=== PATIENT | male | born 1950 | race Caucasian/White ===

== ENCOUNTER 2025-02-08 11:05 | Outpatient (REF) | payer MEDICARE, BC, SELFPAY ==
[2025-02-08 11:46] LABS: Abs Immature Grans 0.04 10^3/uL (0.0-0.06); HCT 50.2 % (40.0-50.0); HGB 16.2 g/dL (13.5-17.5); Immature Grans % 0.3 %; MCH 28.0 pg (27.0-33.0); MCHC 32.3 % (32.0-36.0); MCV 87 fL (80-95); MPV 8.7 fL (8.0-11.0); Platelet Count 281 10^3/uL (130-400); RBC 5.78 10^6/uL (4.36-5.78); RDW 14.5 % (11.8-14.1); RDW-SD 45.9 fL; WBC 12.29 10^3/uL (4.4-10.8)
[2025-02-08 11:50] LABS: ESR 7 mm/hr (0-20)
[2025-02-08 12:15] LABS: ALT 30 U/L (16-63); AST 28 U/L (15-37); Albumin 3.9 g/dL (3.4-5.0); Alkaline Phosphatase 101 U/L (46-116); Anion Gap 9.7 mmol/L (3-11); BUN 18 mg/dL (7-18); Bilirubin, Total 0.6 mg/dL (0.2-1.0); C-Reactive Protein 0.94 mg/dL (<or=0.5); CO2 30.3 mmol/L (21.0-32.0); Calcium 8.7 mg/dL (8.5-10.1); Chloride 103 mmol/L (98-107); Creatine Kinase 86 U/L (39-308); Estimated GFR 64.25 (mL/min/1.73m2); Glucose 84 mg/dL (74-106); Potassium 4.5 mmol/L (3.5-5.1); Sodium 143 mmol/L (136-145); Total Protein 7.2 g/dL (6.4-8.2)
[2025-02-09 11:46] LABS: RNP Ab, IgG <6.0 CU (<20.0); Ro60 Ab, IgG <7.0 CU (<20.0); SS-A/Ro, IgG <2.3 CU (<20.0); SS-B (La) Ab, IgG <3.3 CU (<20.0)
[2025-02-10 14:23] LABS: Scl 70 Antibodies, IgG <0.2 U; Sm (Smith) Ab, IgG <0.2 U
[2025-02-23 18:12] LABS: EJ Ab Negative (Negative); HMG-CoA Reductase Ab <20.0 CU (<20.0); MDA5 Ab Negative (Negative); Mi2 Ab Negative (Negative); NXP2 Ab Negative (Negative); OJ Ab Negative (Negative); PL12 Ab Negative (Negative); PL7 Ab Negative (Negative); SAE1 Ab Negative (Negative); SRP IFA Screen Negative (Negative); TIF 1G Ab Negative (Negative)
== END 2025-02-08 11:06 | disposition home or self-care (01) ==
LOC: LBN 11:05
PROVIDERS: PCP Family Medicine; Visit Provider Internal Medicine Pulmonary Disease
DX: R06.00 Dyspnea, unspecified (principal); J84.9 Interstitial pulmonary disease, unspecified
CPT/HCPCS: 80053; 82397; 82550; 85652; 86200; 86235; 86255; 85025; 86038; 86140; 86225

== ENCOUNTER 2025-02-09 13:14 | Emergency (ER) | payer MEDICARE, BC, SELFPAY ==
[2025-02-09] VITALS (40 sets, daily range): BP systolic 120–139; BP diastolic 61–83; PULSE 51–79; RESP 9–31; TEMP 36.5; O2SAT 88–99
--- NOTE | 2025-02-09 13:15 | RT.EKG_ITS ---
APPROVED REPORT Exam: Resting ECG Reason for Exam: Bilateral shoulder and neck pain Patient Location: E HR:68 bpm ECG Measurements Heart Rate 68 AXIS IL 192 P 40 QRSd 83 QRS 29 QT 408 T 28 QTc 436 Conclusion Sinus rhythm...normal P axis, V-rate 60- 99 Ventricular premature complex...V complex w/ short R-R interval Probable left atrial enlargement...P >50mS, <-0.10mV V1 Repol abnrm suggests ischemia, diffuse leads...ST-T neg, ant/lat/inf No Occlusion OK. Marked T wave inversions with associated ST segment depressions V2 through V5.
--- NOTE | 2025-02-09 13:37 | W.EDPROG ---
Date of service: 02/09/25 Time of Service: 14:18 Medical Decision Making This patient arrived to my shift. He is a. Coronary artery disease status post stenting. He began having chest pain yesterday. Resolved now. He had an abnormal EKG concerning for anterior ischemia. Repeat slight improvement anterior T wave versions. Given no horizontal ST segment depression and upright T waves I did not complete a posterior ECG. Patient making troponin. Cardiology reviewed case. Please see advanced practice provider notes concerning ultimate disposition. Patient remained hemodynamically stable in the emergency department on my shift. Discharge Plan Discharge Details Chief Complaint: Chest Pain Primary Care Provider: Vlad Squires ED Provider: Rasheed Gonzalez Home Meds and New Rx's Prescriptions: No Action Trelegy Ellipta 100-62.5-25 mcg blister with device 1 inh inhalation DAILY Qty: 60 6RF metoprolol tartrate 50 mg tablet 100 mg PO DAILY atorvastatin 40 mg tablet 40 mg PO DAILY Eliquis 5 mg tablet 5 mg PO BID escitalopram oxalate 10 mg tablet 10 mg PO DAILY furosemide 20 mg tablet 20 mg PO DAILY nitroglycerin 0.4 mg tablet, sublingual 0.4 mg sublingual ONCE Rx Instructions: as a single dose; administer 5-10 minutes before situation known to precipitate angina attack pantoprazole 40 mg tablet,delayed release (DR/EC) 40 mg PO DAILY prednisone 20 mg tablet 5 mg PO DAILY POCUS Exam (ED) Limited Cardiac Exam DATE OF EXAM: 02/09/25 TIME OF EXAM: 14:19 PROVIDER THAT PERFORMED THE STUDY: Marv Campa IS THIS A REPEAT EXAM DURING THIS ENCOUNTER: no REASON FOR EXAM: Chest pain VISUALIZED STRUCTURES: Four Chambers, Left ventricle and LVOT VIEW OBTAINED: Apical 4-Chamber, Parasternal long-axis and Subxiphoid PERTINENT FINDINGS/IMPRESSION: No pericardial effusion and No RV dilation DIFFERENTIAL DIAGNOSES: Aortic outflow track less than 4 cm, good squeeze, RV less than LV, no significant pericardial effusion. Bilateral B-lines. No obvious wall motion abnormality. Exam complete
--- NOTE | 2025-02-09 13:45 | RT.EKG_ITS ---
APPROVED REPORT Exam: Resting ECG Reason for Exam: Chest Pain Patient Location: E HR:58 bpm ECG Measurements Heart Rate 58 AXIS SD 202 P 16 QRSd 84 QRS 28 QT 439 T 35 QTc 430 Conclusion Sinus bradycardia...rate< 60 Repol abnrm suggests ischemia, anterior leads...ST dep, T neg, V2-V4 No Occlusion IN
[2025-02-09 13:53] LABS: Abs Immature Grans 0.03 10^3/uL (0.0-0.06); HCT 50.9 % (40.0-50.0); HGB 16.4 g/dL (13.5-17.5); Immature Grans % 0.3 %; MCH 27.8 pg (27.0-33.0); MCHC 32.2 % (32.0-36.0); MCV 86 fL (80-95); MPV 8.3 fL (8.0-11.0); Platelet Count 275 10^3/uL (130-400); RBC 5.90 10^6/uL (4.36-5.78); RDW 14.4 % (11.8-14.1); RDW-SD 45.9 fL; WBC 10.49 10^3/uL (4.4-10.8)
[2025-02-09 14:05] LABS: INR 1.1 (0.9-1.1); PTT Activated 27.8 sec (20.6-30.2); Prothrombin Time 11.0 sec (9.1-11.1)
[2025-02-09 14:14] LABS: ALT 26 U/L (16-63); AST 19 U/L (15-37); Albumin 4.0 g/dL (3.4-5.0); Alkaline Phosphatase 106 U/L (46-116); Anion Gap 9.4 mmol/L (3-11); BUN 18 mg/dL (7-18); Bilirubin, Total 0.5 mg/dL (0.2-1.0); CO2 30.6 mmol/L (21.0-32.0); Calcium 9.0 mg/dL (8.5-10.1); Chloride 103 mmol/L (98-107); Glucose 113 mg/dL (74-106); Lipase 31 U/L (<78); Magnesium 2.0 mg/dL (1.8-2.4); Potassium 4.1 mmol/L (3.5-5.1); Sodium 143 mmol/L (136-145); Total Protein 8.0 g/dL (6.4-8.2)
[2025-02-09 14:15] LABS: Troponin I 94 ng/L (<or=76)
--- NOTE | 2025-02-09 14:15 | DI.RAD_ITS ---
Exam(s) XR PORTABLE CHEST AP EXAM: XR PORTABLE CHEST AP CLINICAL HISTORY: chest pain TECHNIQUE: 2D digital imaging was performed of the chest. One image was obtained. An AP view was obtained. COMPARISON: CT CT CTA CHEST W AND/OR WO CONTRAST from 11/11/[address] CHEST/ABD/PELVIS W/CONTRAST from 07/30/2024 FINDINGS: MEDIASTINUM: Normal. HEART: Normal. PULMONARY VASCULATURE: Normal. LUNGS: Compared to the CT scan of the chest, there again seen interstitial findings in the lungs consistent with pulmonary fibrosis. There are no focal consolidating infiltrates present. PLEURAL SPACE: No pleural effusion or pneumothorax. BONE:Within normal limits for the patient's age. OTHER FINDINGS:Normal. IMPRESSION: 1. There are no focal consolidating infiltrates. 2. Pulmonary fibrosis. DATA REPOSITORY: RADIATION DOSE DELIVERED:
[2025-02-09 15:17] LABS: Troponin I 86 ng/L (<or=76)
--- NOTE | 2025-02-09 15:20 | W.ED.GENAD ---
Discharge Plan Discharge Details Chief Complaint: Chest Pain Primary Care Provider: Vlad Squires ED Provider: Nichole Cantrell Home Meds and New Rx's Prescriptions: No Action Olive Hood 100-62.5-25 mcg blister with device 1 inh inhalation DAILY Qty: 60 6RF metoprolol tartrate 50 mg tablet 100 mg PO DAILY atorvastatin 40 mg tablet 40 mg PO DAILY Eliquis 5 mg tablet 5 mg PO BID escitalopram oxalate 10 mg tablet 10 mg PO DAILY furosemide 20 mg tablet 20 mg PO DAILY nitroglycerin 0.4 mg tablet, sublingual 0.4 mg sublingual ONCE Rx Instructions: as a single dose; administer 5-10 minutes before situation known to precipitate angina attack pantoprazole 40 mg tablet,delayed release (DR/EC) 40 mg PO DAILY prednisone 20 mg tablet 5 mg PO DAILY HPI General Date/Time Provider Initiated Documentation: 02/09/25 13:18. HPI Narrative: This 74-year-old male with history of supraventricular tachycardia, coronary artery disease with multiple stents, hyperlipidemia COPD, oxygen dependence type 2 diabetes presents from respiratory with report of pain in posterior thorax 1 episode of vomiting after walking into the pulmonary clinic today for pulmonary function test. Per pulmonary he was vomiting in the bathroom complaining of some posterior thorax pain and shortness of breath. He did have his baseline oxygen cannula in place. Currently denies any chest pain or thorax pain. He is status post RCA stent placement at [facility] [place] July of this year and has been taking his Eliquis as prescribed. He states he has a known LAD occlusion additionally. He states at this moment his pain is completely resolved. He denies any calf pain or swelling or history of pulmonary embolism. Denies tobacco use or alcohol use. Related Data Home Medications Medication Instructions Recorded Confirmed apixaban 5 mg tablet (Eliquis) 5 mg PO BID 05/14/24 02/09/25 atorvastatin 40 mg tablet 40 mg PO DAILY 05/14/24 02/09/25 escitalopram oxalate 10 mg tablet 10 mg PO DAILY 05/14/24 02/09/25 furosemide 20 mg tablet 20 mg PO DAILY 05/14/24 02/09/25 nitroglycerin 0.4 mg sublingual 0.4 mg sublingual ONCE 05/14/24 02/09/25 tablet metoprolol tartrate 50 mg tablet 100 mg PO DAILY 06/15/24 02/09/25 pantoprazole 40 mg tablet,delayed 40 mg PO DAILY 12/27/24 02/09/25 release prednisone 20 mg tablet 5 mg PO DAILY 12/27/24 02/09/25 fluticasone fur. 100 mcg-umeclid 1 inh inhalation DAILY #60 ea 02/08/25 02/09/25 62.5 mcg-vilant 25 mcg inhalat.powder (Trelegy Ellipta) Previous Rx's Medication Instructions Recorded fluticasone fur. 100 mcg-umeclid 1 inh inhalation DAILY #60 ea 02/08/25 62.5 mcg-vilant 25 mcg inhalat.powder (Trelegy Ellipta) Allergies Allergy/AdvReac Type Severity Reaction Status Date / Time Sulfa (Sulfonamide Allergy Unknown Verified 02/09/25 13:19 Antibiotics) sulfamethoxazole (From Allergy Skin Rash Verified 02/09/25 13:19 Sulfamethoxazole-Trimethoprim) tree and shrub pollen Allergy Unknown Verified 02/09/25 13:19 trimethoprim (From Allergy Skin Rash Verified 02/09/25 13:19 Sulfamethoxazole-Trimethoprim) General Stated Complaint: GenMedical CLEM: 3 Exam Narrative Exam Narrative: Alert and oriented 74-year-old male chronically ill in appearance of oxygen cannula in place, no respiratory distress diminished lung sounds distal pulses intact all 4 extremities no peripheral edema no calf swelling or tenderness no abdominal tenderness no abdominal bruit or pulsatile mass Course Vital Signs Vital signs: Vital Signs Temperature 36.5 C 02/09/25 13:16 Pulse 72 02/09/25 13:16 Respiratory Rate 18 02/09/25 13:16 Blood Pressure 122/70 02/09/25 13:16 Pulse Oximetry 88 L 02/09/25 13:16 Temperature 36.5 C 02/09/25 13:16 Pulse 54 L 02/09/25 14:50 Pulse 55 L 02/09/25 14:50 Respiratory Rate 21 02/09/25 14:50 Respiratory Effort Normal, Non-Labored 02/09/25 14:07 Respiratory Depth Normal 02/09/25 14:07 Respiratory Pattern Normal 02/09/25 14:07 Blood Pressure 133/61 02/09/25 14:46 Blood Pressure Mean 87 02/09/25 14:46 Pulse Oximetry 95 02/09/25 14:50 Oxygen Delivery Method Nasal Cannula 02/09/25 13:16 Oxygen Flow Rate 3 02/09/25 13:16 Pain Level 0 02/09/25 13:16 Lab/Test Results Lab/Test Results: Laboratory Tests Range/Units 02/09/25 02/09/25 13:35 14:35 WBC (4.4-10.8) 10^3/uL 10.49 RBC (4.36-5.78) 10^6/uL 5.90 H Hgb (13.5-17.5) g/dL 16.4 Hct (40.0-50.0) % 50.9 H MCV (80-95) fL 86 MCH (27.0-33.0) pg 27.8 MCHC (32.0-36.0) % 32.2 RDW (11.8-14.1) % 14.4 H Plt Count (130-400) 10^3/uL 275 MPV (8.0-11.0) fL 8.3 Immature Gran % % 0.3 Neutrophils % % 71.5 Lymphocytes % % 17.3 Monocytes % % 8.0 Eosinophils % % 2.5 Basophils % % 0.4 Nucleated RBC % (0.0-0.3) % 0.0 Absolute Neutrophils (1.2-6.7) 10^3/uL 7.50 H Absolute Lymphocytes (1.2-3.4) 10^3/uL 1.82 Absolute Monocytes (0.1-0.8) 10^3/uL 0.84 H Absolute Eosinophils (0.0-0.7) 10^3/uL 0.26 Absolute Basophils (0.0-0.2) 10^3/uL 0.04 PT (9.1-11.1) sec 11.0 INR (0.9-1.1) 1.1 APTT (20.6-30.2) sec 27.8 Sodium (136-145) mmol/L 143 Potassium (3.5-5.1) mmol/L 4.1 Chloride (98-107) mmol/L 103 Carbon Dioxide (21.0-32.0) mmol/L 30.6 Anion Gap (3-11) mmol/L 9.4 BUN (7-18) mg/dL 18 Creatinine (0.70-1.30) mg/dL 1.4 H Est GFR (CKD-EPI 2020) (mL/min/1.73m2) 53.40 Glucose (74-106) mg/dL 113 H Calcium (8.5-10.1) mg/dL 9.0 Magnesium (1.8-2.4) mg/dL 2.0 Total Bilirubin (0.2-1.0) mg/dL 0.5 AST (15-37) U/L 19 ALT (16-63) U/L 26 Alkaline Phosphatase (46-116) U/L 106 Troponin I (<or=76) ng/L 94 H* 86 H* NT-Pro-B Natriuret Pep (<300) pg/mL 1194 H Total Protein (6.4-8.2) g/dL 8.0 Albumin (3.4-5.0) g/dL 4.0 Lipase (<78) U/L 31 Medical Decision Making Results: EKG concerning for posterior ischemia without obvious ST elevation or injury, troponin elevated at 94 CBC CMP within normal limits mild elevation in BNP at 1194 Assessment and plan: Patient currently chest pain-free and he does not endorse chest pain since last evening however respiratory therapist who brought patient down states he was complaining of some posterior thorax pain just prior to presentation in the emergency department patient does confirm that this is the case. He is chest pain free is not vomiting he is fully alert and oriented, his EKG is concerning for posterior ischemia and quite changed from his EKG performed at [facility] in August 2024 which is my last comparison. Patient did take his Eliquis this morning so I will hold on aspirin or heparin until I speak with cardiology at [facility]. Initial troponin is 94, repeat troponin of 86. Repeat EKG does not show acute change actually perhaps some mild improvement in V5 and V6. Blood pressure stable at 130/66 will hold on any additional medications at this time. Pending cardiology return call of note cardiology was called at approximately [phone] pending return call at this time patient is chest pain-free. I spoke with Rosa, cardiology nurse practitioner and she is going to speak with patient's dumpling machine operator regarding plan. Sounds like [facility] is at capacity and patient had an appointment with a stress test 3 weeks ago. Recommends adding 81 mg aspirin to Eliquis and holding heparin at this time. Pending return call at 1555. PFSH All Active Problems (Updated 11/04/25 @ 09:27 by Vance Claors MD) Chronic obstructive lung disease (Chronic) Interstitial lung disease (Acute) Paroxysmal A-fib (Acute) Iron deficiency anemia (Acute) Edema (Acute) CTS (carpal tunnel syndrome) (Acute) Sensorineural hearing loss (SNHL) of both ears (Acute) Nasal congestion (Acute) Medical History (Updated 02/08/25 @ 09:27 by Vance Claros MD) Pneumonia Post-procedural fever History of left heart catheterization Type 2 diabetes mellitus without complication Tracheobronchitis Nicotine dependence Impaired glucose tolerance Hyperkalemia Chronic diarrhea Cellulitis of left lower limb Wheezing SVT (supraventricular tachycardia) Screening for malignant neoplasm of prostate declined Screening for malignant neoplasm Right lumbar radiculopathy Right foot pain Polyp of colon Pain, joint, shoulder, right Pain, joint, shoulder, left 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 Mixed hyperlipidemia Low back pain Kidney disease Hypertensive disorder Gout Gastritis Epigastric pain Dyspnea Dysnomia Dizziness and giddiness Diverticulitis Diarrhea Depressive disorder Abnormal CT of the chest Chronic kidney disease Chronic hypoxic respiratory failure Chronic fatigue syndrome Bilateral tinnitus Atopic dermatitis Atherosclerosis of coronary artery without angina pectoris Ankle swelling Allergic rhinitis Surgical History (Updated 05/14/24 @ 11:00 by Yanely Rico) H/O arthroscopy of shoulder H/O hernia repair Status post cardiac surgery S/P colonoscopy 04/24/2015, 04/07/2007, 04/07/2004 Status post laser cataract surgery of left eye Family History (Updated 12/27/24 @ 15:09 by Lulu Fong RN) Father Cancer Hypertension Mother Diabetes Sister Lung disease Immunodeficiency Lung disease, immunodeficiency, and chromosome breakage syndrome Social History (Updated 05/14/24 @ 11:16 by Yanely Rico) Smoking/Tobacco Use Status: Former Tobacco Use Smoking risk assessment performed?: Yes Alcohol Intake: never Substance use type: does not use Housing: house Do you feel safe at home: Yes Do you feel safe in your relationship?: Yes
[2025-02-09] MEDS: Aspirin 81 MG CHEW CH (16:01)
--- NOTE | 2025-02-09 16:30 | RT.EKG_ITS ---
APPROVED REPORT Exam: Resting ECG Reason for Exam: posterior EKG Patient Location: E HR:55 bpm ECG Measurements Heart Rate 55 AXIS UT 203 P 32 QRSd 89 QRS 29 QT 461 T 43 QTc 443 Conclusion Sinus bradycardia...rate< 60 Probable left atrial enlargement...P >50mS, <-0.10mV V1 No Occlusion [place]
[2025-02-09 17:02] LABS: Troponin I 120 ng/L (<or=76)
[2025-02-09] MEDS: Ranolazine 500 MG TABCR PO ×2 (18:00→18:06)
--- NOTE | 2025-02-13 16:08 | NUR.NOTE ---
Access chart to reconcile EKG orders with EKG's in [facility].Nursing Note:
== END 2025-02-09 18:14 | disposition left against medical advice (07) ==
PROVIDERS: Physician Assistant; Emergency Provider Physician Assistant; PCP Family Medicine
DX: R07.89 Other chest pain (principal); R79.89 Other specified abnormal findings of blood chemistry; R06.02 Shortness of breath; Z86.79 Personal history of other diseases of the circulatory system; Z53.29 Procedure and treatment not carried out because of patient's decision for other reasons
CPT/HCPCS: 99285 ×2; 36415; 00123; 80053; 83690; 93005; 93308; 71045; 83735; 83880; 84484; 85025; 85610; 85730; 93010; J3490

== ENCOUNTER 2025-02-21 02:24 | Outpatient (CLI) | payer MEDICARE, BC, SELFPAY ==
--- NOTE | 2025-02-24 08:54 | W.PFT ---
Date of service: 02/21/25 Time of Service: 09:52 Pulmonary Function Test Result Indications: Dyspnea on exertion Impression 1. Good patient effort was noted. ATS standards for reproducibility were met. 2. Normal spirometry. 3. TLC was normal. No evidence of restrictive lung disease 4. DLCO was 39% predicted, consistent with a severe defect in alveolar gas exchange
== END 2025-02-21 02:25 | disposition home or self-care (01) ==
LOC: RT 02:24
PROVIDERS: PCP Family Medicine; Visit Provider Internal Medicine Pulmonary Disease
DX: R06.09 Other forms of dyspnea (principal)
CPT/HCPCS: 94010; 94726; 94729

== ENCOUNTER → 2025-02-22 11:13 | Outpatient (BNVA) | payer MEDICARE, BC, SELFPAY | PROVIDERS: PCP Family Medicine; Referring Provider Family Medicine; Visit Provider Internal Medicine Pulmonary Disease | DX: J84.9 Interstitial pulmonary disease, unspecified (principal); J44.9 Chronic obstructive pulmonary disease, unspecified; J96.11 Chronic respiratory failure with hypoxia; Z87.891 Personal history of nicotine dependence | CPT/HCPCS: 99215 ==